=== PATIENT | female | born 1965 | race Caucasian/White ===

== ENCOUNTER 2016-07-01 19:29 | Emergency (ER) | payer MEDICAID ==
[~2016-07-01] VITALS: Ht 157.5 cm; Wt 56.0 kg
[2016-07-01] MEDS ORDERED: ACETAMINOPHEN 500MG TABLET PO ONE (22:30)
[2016-07-01 23:13] LABS: EOSINOPHILS % 1.4 % (0.0-5.0); HEMATOCRIT. 35.1 % (36.0-48.0); HEMOGLOBIN. 11.3 g/dL (12.0-16.0); LYMPHOCYTES % 17.8 % (20.0-50.0); MEAN CORPUSCULAR HGB CONC 32.2 g/dL (31.0-37.0); MEAN CORPUSCULAR VOLUME 83.7 fL (81.0-99.0); MEAN PLATELET VOLUME 7.1 fl (7.4-10.4); MONOCYTES % 7.6 % (2.0-8.0); NEUTROPHILS % 72.2 % (40.0-76.0); PLATELET 235 x1000/uL (130-400); RED CELL DISTRIBUTION WIDTH 26.6 % (11.6-14.6); WHITE BLOOD COUNT 9.2 x1000/uL (4.5-11.0)
[2016-07-01 23:14] LABS: ADD RBC MORPHOLOGY YES; DIFFERENTIAL COMMENT 1
[2016-07-01 23:17] LABS: PLATELET ESTIMATE NORMAL
[2016-07-01 23:21] LABS: ANISOCYTOSIS 2+; CHLORIDE 103 mEq/L (98-107); INDEX HEMOLYSI 1 (1-3); INDEX ICTERIC 1 (1-4); INDEX LIPEMIC 1 (1-3)
[2016-07-01 23:28] LABS: ALANINE AMINOTRANSFERASE 18 IU/L (13-61); ALBUMIN 3.5 g/dL (3.4-5.0); ANION GAP 12; CALCIUM 8.8 mg/dL (8.5-10.1); CARBON DIOXIDE 28 mEq/L (21-32); LIPASE 178 IU/L (73-393); UREA NITROGEN BLOOD 14 mg/dL (7-21); eGFR > 60 mL/min (>60)
[2016-07-01 23:30] LABS: CLARITY URINE CLOUDY (CLEAR); COLOR URINE YELLOW (YELLOW); GLUCOSE URINE NEGATIVE (NEGATIVE); KETONES URINE TRACE (NEGATIVE); LEUKOCYTE ESTERASE URINE 1+ (NEGATIVE); NITRITE URINE NEGATIVE (NEGATIVE); OCCULT BLOOD URINE NEGATIVE (NEGATIVE); PH URINE 5.5 (4.5-8.0); PROTEIN URINE NEGATIVE (NEGATIVE); SPECIFIC GRAVITY URINE 1.034 (1.005-1.030)
[2016-07-02 00:04] LABS: SQUAMOUS EPITHELIAL CELL URINE 1+ /lpf (RARE/1+)
[2016-07-02 00:06] LABS: BACTERIA URINE 1+; RBC URINE 0-2 /hpf (0-2)
[2016-07-02 00:22] VITALS: BP 112/68
== END 2016-07-02 01:12 | disposition home or self-care (01) ==
LOC: ER 22:02
DX: N39.0 Urinary tract infection, site not specified (principal)
CPT/HCPCS: 36415; 80053; 81001; 81025; 83690; 85025; 99284